=== PATIENT | female | born 1995 | race Caucasian/White ===

== ENCOUNTER 2020-04-20 05:57 | Inpatient (IN) ==
[2020-04-20] MEDS ORDERED: Ringers Solution, Lactated 1,000 ML IVC ONE (06:02)
[2020-04-20] MEDS ORDERED: Famotidine 20 MG/2 ML VIAL IVP ONE (06:02)
[2020-04-20] MEDS ORDERED: Metoclopramide 10 MG/2 ML VIAL IVP ONE (06:02)
[2020-04-20 07:09] LABS: Basophils % 0.2 %; Eosinophils # 0.1 K/mcL (0.0-0.6); Eosinophils % 0.8 %; Hematocrit 35.5 % (35.3-44.9); Hemoglobin 12.1 g/dL (11.5-15.4); Immature Granulocytes % 0.3 % (0-4); Lymphocytes # 1.5 K/mcL (0.6-4.6); Lymphocytes % 23.5 %; Mean Corpuscular HGB Conc 34.1 g/dL (31.6-35.5); Mean Corpuscular Hemoglobin 35.6 pg (28.0-33.3); Mean Corpuscular Volume 104.4 fL (83.0-100.0); Mean Platelet Volume 11.3 fL (9.4-12.4); Monocytes # 0.7 K/mcL (0.0-1.3); Monocytes % 10.5 %; Neutrophils # 4.2 K/mcL (1.6-8.9); Platelet Count 210 K/mcL (140-400); Red Cell Distribution Width 13.9 % (11.5-14.5); Segmented Neutrophils % 64.7 %; White Blood Count 6.5 K/mcL (4.3-11.1)
[2020-04-20 07:10] LABS: Amphetamine Screen,Urine Negative ng/mL (Cutoff=1000); Barbiturate Screen,Urine Negative ng/mL (Cutoff=200)
[2020-04-20 07:11] LABS: Benzodiazepines Screen,Urine Negative ng/mL (Cutoff=300); Cannabinoid Screen,Urine Negative ng/mL (Cutoff = 50); Cocaine Screen,Urine Negative ng/mL (Cutoff= 300); Opiate Screen,Urine Negative ng/mL (Cutoff=300); Phencyclidine Screen,Urine Negative ng/mL (Cutoff=25)
[2020-04-20] MEDS ORDERED: *HR* Morphine Sulfate/PF 10 MG/10 ML AMPUL ONE (07:15)
[2020-04-20] MEDS ORDERED: *HR* Oxytocin 10 UNIT/ML VIAL IM ONE (07:15)
[2020-04-20] MEDS ORDERED: Ringers Solution, Lactated 1,000 ML ONE ×2 (07:15→07:41)
[2020-04-20] MEDS ORDERED: *HR* FentaNYL (PF) 100 MCG/2 ML VIAL ONE (07:15)
[2020-04-20] MEDS ORDERED: Ringers Solution, Lactated 1,000 ML IVC SCH ×3 (07:45→12:30)
[2020-04-20] MEDS ORDERED: ceFAZolin 2,000 MG in Water for inj. (sterile) 20 ML IVP SCH (08:00)
[2020-04-20] MEDS ORDERED: Naloxone 0.4 MG/ML INJ IVP PRN ×3 (08:51→12:24)
[2020-04-20] MEDS ORDERED: Ondansetron 4 MG/2 ML VIAL IVP PRN ×4 (08:51→12:24)
[2020-04-20] MEDS ORDERED: *HR* OxyCODONE Immed Rel 5 MG TABLET PO PRN ×4 (08:51→12:24)
[2020-04-20] MEDS ORDERED: *HR* HYDROmorphone PF 0.5 MG/0.5 ML SYRINGE IVP PRN (08:51)
[2020-04-20] MEDS ORDERED: Acetaminophen IV 1,000 MG/100 ML BAG ONE (09:13)
[2020-04-20] MEDS ORDERED: Metoclopramide 10 MG/2 ML VIAL IVP PRN ×3 (09:53→12:24)
[2020-04-20] MEDS ORDERED: Simethicone 80 MG TAB.CHEW PO PRN ×3 (09:53→12:24)
[2020-04-20] MEDS ORDERED: Rho Immune Globulin 1,500 UNIT SYRINGE IM ONE ×3 (09:53→12:24)
[2020-04-20] MEDS ORDERED: Oxytocin 20 units/ LR 1000 mL 20 UNIT/1,000 ML BAG IVC SCH ×2 (10:00→12:15)
[2020-04-20] MEDS ORDERED: Ibuprofen 600 MG TABLET PO SCH ×2 (12:00→18:00)
[2020-04-20] MEDS ORDERED: Acetaminophen 325 MG TABLET PO SCH ×2 (12:00→18:00)
[2020-04-20] MEDS ORDERED: Sennosides 8.6 MG TABLET PO PRN (12:09)
[2020-04-20] MEDS ORDERED: *HR* OxyCODONE/APAP 5/325 TABLET PO PRN (12:09)
[2020-04-20] MEDS: Oxytocin 20 units/ LR 1000 mL 20 UNIT/1,000 ML BAG IVC SCH ×2 (13:15→21:23)
[2020-04-20] MEDS ORDERED: metroNIDAZOLE 500 MG TABLET PO SCH ×2 (15:00)
[2020-04-20] MEDS ORDERED: cephALEXin 500 MG CAPSULE PO SCH ×2 (15:00)
[2020-04-20] MEDS: cephALEXin 500 MG CAPSULE PO SCH ×2 (15:17→21:22)
[2020-04-20] MEDS: metroNIDAZOLE 500 MG TABLET PO SCH ×2 (15:17→21:22)
[2020-04-20] MEDS: Acetaminophen 325 MG TABLET PO SCH (21:22)
[2020-04-20] MEDS: Ibuprofen 600 MG TABLET PO SCH (21:23)
[2020-04-21] MEDS: Ibuprofen 600 MG TABLET PO SCH ×3 (05:07→17:54)
[2020-04-21] MEDS: Acetaminophen 325 MG TABLET PO SCH ×3 (05:07→17:54)
[2020-04-21] MEDS ORDERED: valACYclovir 500 MG TABLET PO SCH (09:00)
[2020-04-21] MEDS ORDERED: Prenatal Vit/FA 1 EACH TABLET PO SCH ×2 (09:00)
[2020-04-21] MEDS: Prenatal Vit/FA 1 EACH TABLET PO SCH (09:56)
[2020-04-21] MEDS: metroNIDAZOLE 500 MG TABLET PO SCH ×3 (09:57→21:00)
[2020-04-21] MEDS: cephALEXin 500 MG CAPSULE PO SCH ×3 (09:57→20:59)
[2020-04-21] MEDS ORDERED: Rho Immune Globulin 1,500 UNIT SYRINGE IM ONE (12:33)
[2020-04-22] MEDS: Ibuprofen 600 MG TABLET PO SCH ×2 (00:17→08:12)
[2020-04-22] MEDS: Acetaminophen 325 MG TABLET PO SCH ×2 (00:17→08:12)
[2020-04-22] MEDS: Prenatal Vit/FA 1 EACH TABLET PO SCH (08:11)
[2020-04-22] MEDS: cephALEXin 500 MG CAPSULE PO SCH (08:11)
[2020-04-22] MEDS: metroNIDAZOLE 500 MG TABLET PO SCH (08:11)
[2020-04-22 09:34] VITALS: BP 111/70
== END 2020-04-22 11:02 | disposition home or self-care (01) | DRG 539 ==
LOC: 1NENULAB 05:57 → 1NENUOBS 11:31
PROVIDERS: ADMIT Obstetrics & Gynecology; ATTEND Obstetrics & Gynecology